=== PATIENT | male | born 1975 | race Caucasian/White ===

== ENCOUNTER 2023-03-06 10:13 | Emergency (ER) | payer OTHER ==
[2023-03-06] MEDS ORDERED: Lidocaine 5% 700 MG Patch TOP ONE (11:25)
[2023-03-06] MEDS ORDERED: Pantoprazole 40 MG Tab.CR PO ONE (11:25)
[2023-03-06] MEDS ORDERED: Orphenadrine 60 MG/2 ML Inj IM ONE (11:26)
[2023-03-06] MEDS ORDERED: methylPREDNISolone Sodium Succinate 125 MG/2 ML SDV IM ONE (11:26)
== END 2023-03-06 12:26 | disposition home or self-care (01) ==
LOC: DL.ED 10:13
DX: M54.42 Lumbago with sciatica, left side (principal); F17.210 Nicotine dependence, cigarettes, uncomplicated; Z88.0 Allergy status to penicillin
CPT/HCPCS: 96372; 99283; A9270; J2360; J2930

== ENCOUNTER 2023-03-10 07:53 | Emergency (ER) | payer OTHER ==
[2023-03-10] MEDS ORDERED: Dexamethasone 4 MG Tab PO ONE (08:24)
[2023-03-10] MEDS ORDERED: Lidocaine 5% 700 MG Patch TOP ONE (08:27)
== END 2023-03-10 08:43 | disposition home or self-care (01) ==
LOC: DL.ED 07:53
DX: M54.16 Radiculopathy, lumbar region (principal); F17.210 Nicotine dependence, cigarettes, uncomplicated; Z88.0 Allergy status to penicillin
CPT/HCPCS: 99282; 99283; A9270-GY; J8540